=== PATIENT | male | born 1955 | race Caucasian/White ===

== ENCOUNTER 2019-05-13 22:48 | Emergency (ER) | payer BC, MEDICARE ==
[2019-05-13] MEDS ORDERED: methylPREDNISolone Sodium Succinate 125 MG/2 ML SDV IVPUSH ONE (23:29)
--- NOTE | 2019-05-13 23:30 | EDM.PDOC ---
ED HPI GENERAL MEDICAL PROBLEM - General Chief Complaint: ENT Problem Stated Complaint: SWOLLEN TONGUE Time Seen by Provider: 05/13/19 23:30 Source of Information: Reports: Patient History Limitations: Reports: No Limitations - History of Present Illness INITIAL COMMENTS - FREE TEXT/NARRATIVE: pt arrived with a markedly swollen tongue. He is not resp compromised. pt does have a history of angioedema. Onset: Today, Sudden Duration: Hour(s): Location: Reports: Face, Neck Associated Symptoms: Reports: No Other Symptoms - Related Data Allergies Allergy/AdvReac Type Severity Reaction Status Date / Time No Known Allergies Allergy Verified 05/13/19 23:18 Home Meds: Home Meds predniSONE 20 mg PO ASDIRECTED 05/13/19 [History] Past Medical History HEENT History: Reports: Impaired Vision Musculoskeletal History: Reports: Arthritis Dermatologic History: Reports: Angiodema, Psoriasis - Infectious Disease History Infectious Disease History: Reports: Chicken Pox, Measles, Mumps - Past Surgical History HEENT Surgical History: Reports: Detached Retina, Eye Surgery Musculoskeletal Surgical History: Reports: Shoulder Surgery Social & Family History - Tobacco Use Smoking Status *Q: Former Smoker Used Tobacco, but Quit: Yes Month/Year Tobacco Last Used: 50 years ago quit - Caffeine Use Caffeine Use: Reports: Coffee - Recreational Drug Use Recreational Drug Use: No ED ROS ENT - Review of Systems Review Of Systems: See Below Constitutional: Reports: No Symptoms HEENT: Reports: Other ( tongue is markedly swollen. He has a known history of angioedema, ) Respiratory: Reports: Other (pt is not having difficulty breathing. ) Cardiovascular: Reports: No Symptoms Endocrine: Reports: No Symptoms GI/Abdominal: Reports: No Symptoms : Reports: No Symptoms Musculoskeletal: Reports: No Symptoms Skin: Reports: No Symptoms Neurological: Reports: No Symptoms ED EXAM, ENT - Physical Exam Exam: See Below Text/Narrative:: pt arrived with a history of angioedema. His tongue is markedly swollen tonight. He is not having airway issues. Exam Limited By: No Limitations General Appearance: Alert, Anxious, Mild Distress Ears: Normal TMs Nose: Normal Inspection Mouth/Throat: Normal Inspection, Other ( tongue is markedly swollen. ) Head: Atraumatic Neck: Normal Inspection Respiratory/Chest: No Respiratory Distress Cardiovascular: Regular Rate, Rhythm GI/Abdominal: Soft, Non-Tender (Male) Exam: Deferred Rectal (Males) Exam: Deferred Back: Normal Inspection Extremities: Normal Inspection Course - Vital Signs Last Recorded V/S: Last Vital Signs Temp 35.3 C L 05/13/19 23:19 Pulse 66 05/13/19 23:19 Resp 14 05/13/19 23:19 BP 127/79 05/13/19 23:19 Pulse Ox 96 05/13/19 23:19 - Orders/Labs/Meds Meds: Medications Discontinued Medications Generic Name Dose Route Start Last Admin Trade Name Sandeep MARLOW Reason Stop Dose Admin Diphenhydramine HCl 50 mg 05/14/19 01:16 05/14/19 01:26 Benadryl IVPUSH 05/14/19 01:17 50 mg ONETIME ONE Administration Methylprednisolone Sodium Succinate 125 mg 05/13/19 23:29 05/13/19 23:50 Solu-Medrol IVPUSH 05/13/19 23:30 125 mg ONETIME ONE Administration - Re-Assessments/Exams Free Text/Narrative Re-Assessment/Exam: 05/14/19 01:51 pt was given solumedrol 125 iv and benadryl 50mg iv. He is much more comfortable and the tongue has gone down alot. Departure - Departure Time of Disposition: 01:52 Disposition: Home, Self-Care 01 Condition: Fair Clinical Impression: Angio-edema - Discharge Information Referrals: Abraham De Anda MD [Primary Care Provider] - Forms: ED Department Discharge Care Plan Goals: at 4 am take another 50 mg of benadryl. In the am if he continues to have swelling use the predisone. rtc if problems. Sepsis Event Note - Evaluation Sepsis Screening Result: No Definite Risk - Focused Exam Vital Signs: Vital Signs Temp Pulse Resp BP Pulse Ox 05/13/19 23:19 35.3 C L 66 14 127/79 96 05/13/19 23:17 35.3 C L 66 14 127/79 96 Date Exam was Performed: 05/14/19 Time Exam was Performed: 01:50
[2019-05-14] MEDS ORDERED: diphenhydrAMINE 50 MG/ML SDV IVPUSH ONE (01:16)
== END 2019-05-14 02:19 | disposition home or self-care (01) ==
LOC: JP.ED 22:48
DX: T78.3XXA Angioneurotic edema, initial encounter (principal); Z87.891 Personal history of nicotine dependence
CPT/HCPCS: 96374; 96375; 99283; J1200; J2930

== ENCOUNTER 2021-05-07 16:25 | Emergency (ER) | payer MEDICARE ==
[2021-05-07 17:22] LABS: CORONAVIRUS COVID-19 NAA NEGATIVE (NEGATIVE)
== END 2021-05-07 18:55 | disposition home or self-care (01) ==
LOC: JP.ED 16:25
DX: R42 Dizziness and giddiness (principal); R11.0 Nausea; Z20.822 Contact with and (suspected) exposure to COVID-19
CPT/HCPCS: 0241U; 36415; 70450; 80048; 80076; 85025; 93005; 93010; 99282; 99284-25

== ENCOUNTER 2022-10-09 18:50 | Emergency (ER) | payer MEDICARE | END 2022-10-09 20:12 | disposition home or self-care (01) | LOC: JP.ED 18:50 | DX: T15.92XA Foreign body on external eye, part unspecified, left eye, initial encounter (principal) | CPT/HCPCS: 99283 ==